=== PATIENT | female | born 1955 | race Caucasian/White ===

== ENCOUNTER 2020-02-29 10:03 | Outpatient (CLI) | payer OTHER ==
[~2020-02-29 10:03] MED LIST: ASA-EC81 MG; LEVSIN0.125 MG PO; PRILOSEC40 MG; PROTONIX40 MG PO; ZANTAC300 MG PO; ZOFRAN4 MG PO
== END 2020-02-29 10:15 | disposition home or self-care (01) ==
LOC: SONOGRAMA 10:03
PROVIDERS: ATTEND Pathology Anatomic Pathology & Clinical Pathology
DX: E04.2 Nontoxic multinodular goiter (principal)

== ENCOUNTER 2021-12-09 20:57 | Emergency (ER) | payer OTHER ==
[~2021-12-09] VITALS: Ht 162.6 cm; Wt 102.5 kg
[2021-12-09] MEDS ORDERED: LIPITOR20 MG (21:16)
[2021-12-09] MEDS ORDERED: LOSARTAN POTASS50 MG (21:17)
[2021-12-09] MEDS ORDERED: LEVOTHYROXINE25 MCG (21:17)
== END 2021-12-10 01:16 | disposition home or self-care (01) ==
LOC: ER 20:57
DX: R19.7 Diarrhea, unspecified (principal)

== ENCOUNTER 2022-11-10 17:22 | Emergency (ER) | payer OTHER ==
[~2022-11-10] VITALS: Ht 160 cm; Wt 101.2 kg
[~2022-11-10 17:22] MED LIST changes: +LEVOTHYROXINE25 MCG; +LIPITOR20 MG; +LOSARTAN POTASS50 MG
[2022-11-10] MEDS ORDERED: OMEPRAZOLE20 MG PO (18:53)
== END 2022-11-10 21:37 | disposition home or self-care (01) ==
LOC: ER 17:22
DX: R06.02 Shortness of breath (principal); Z20.822 Contact with and (suspected) exposure to COVID-19